=== PATIENT | male | born 1970 | race Hispanic/Latino ===

== ENCOUNTER 2017-02-01 | Emergency (ER) | payer MEDICAID ==
[2017-02-01 00:34] VITALS: BP 120/85
--- NOTE | 2017-02-04 00:54 | ED Elopement Review ---
ED Pt Elopement review - Call Back decision Pt Call Back Decision: Pt to F/U with PMD
== END 2017-02-01 03:02 | disposition left against medical advice (07) ==
LOC: ED
DX: Z00.8 Encounter for other general examination (principal); Z53.21 Procedure and treatment not carried out due to patient leaving prior to being seen by health care provider

== ENCOUNTER 2017-02-01 15:26 | Emergency (ER) | payer MEDICAID ==
[2017-02-01 16:02] VITALS: BP 126/86
--- NOTE | 2017-02-01 17:29 | Emergency Department Report ---
ED Psych HPI - General Chief Complaint: Recheck/Abnormal Lab/Rx Stated Complaint: MED REFILL Time Seen by Provider: 02/01/17 17:15 Source: patient Mode of arrival: Ambulatory - History of Present Illness Initial Comments: Pt is a 46 yr old male, unknown to me, presenting to the ER requesting haldol injections and Rx for haldol. Pt reports he used to get them from his previous psychiatrist, but is in the midst of finding a new doctor. Pt denies any SI, HI , delusions, hallucinations. Pt is homeless and does not have a job. Pt also reports he has no ID and cannot get into a [facility]. I explained to the patient I will not give him an injection of haldol and discharge him with a Rx without speaking with his doctor, but he cannot provide information regarding his psych history. - Related Data Previous Rx's Medication Instructions Recorded Last Taken Type Cyclobenzaprine [Flexeril 10mg] 10 mg PO TID PRN #15 tablet 10/15/14 Unknown Rx HYDROcodone/APAP 5-325 [[place] 1 each PO Q8H PRN #12 tablet 10/15/14 Unknown Rx 5-325 mg TAB] Ibuprofen [Motrin 800 MG tab] 800 mg PO Q8H #15 tablet 10/15/14 Unknown Rx levETIRAcetam [Keppra] 500 mg PO BID #60 tablet 01/23/15 Unknown Rx Ibuprofen [Motrin 800 MG tab] 800 mg PO Q8HR PRN #30 tablet 10/08/15 Unknown Rx methOCARBAMOL [Robaxin TAB] 500 mg PO Q6H PRN #20 tablet 10/08/15 Unknown Rx Allergies Allergy/AdvReac Type Severity Reaction Status Date / Time No Known Allergies Allergy Verified 03/03/14 22:59 ED Review of Systems ROS: Stated complaint: MED REFILL Other details as noted in HPI Comment: All other systems reviewed and negative ED Past Medical Hx - Past Medical History Previous Medical History?: Yes Hx Psychiatric Treatment: Yes (schizophrenia bipolar) Hx COPD: Yes - Surgical History Additional Surgical History: bilat knee surgery. LEFT ELBOW SURGERY - Social History Smoking Status: Current Every Day Smoker Substance Use Type: Alcohol - Medications Home Medications: Home Medications Medication Instructions Recorded Confirmed Last Taken Type Cyclobenzaprine [Flexeril 10mg] 10 mg PO TID PRN #15 tablet 10/15/14 Unknown Rx HYDROcodone/APAP 5-325 [[place] 1 each PO Q8H PRN #12 tablet 10/15/14 Unknown Rx 5-325 mg TAB] Ibuprofen [Motrin 800 MG tab] 800 mg PO Q8H #15 tablet 10/15/14 Unknown Rx levETIRAcetam [Keppra] 500 mg PO BID #60 tablet 01/23/15 Unknown Rx Ibuprofen [Motrin 800 MG tab] 800 mg PO Q8HR PRN #30 tablet 10/08/15 Unknown Rx methOCARBAMOL [Robaxin TAB] 500 mg PO Q6H PRN #20 tablet 10/08/15 Unknown Rx ED Physical Exam - General Limitations: No Limitations General appearance: alert, in no apparent distress, other (Unkempt) - Head Head exam: Present: atraumatic, normocephalic - Eye Eye exam: Present: normal appearance, PERRL, EOMI. Absent: nystagmus - ENT ENT exam: Present: mucous membranes moist - Neck Neck exam: Present: normal inspection - Respiratory Respiratory exam: Present: normal lung sounds bilaterally. Absent: respiratory distress - Cardiovascular Cardiovascular Exam: Present: regular rate, normal rhythm. Absent: systolic murmur, diastolic murmur, rubs, gallop - GI/Abdominal GI/Abdominal exam: Present: soft, normal bowel sounds - Rectal Rectal exam: Present: deferred - Extremities Exam Extremities exam: Present: normal inspection - Back Exam Back exam: Present: normal inspection - Neurological Exam Neurological exam: Present: alert, oriented X3 - Psychiatric Psychiatric exam: Present: normal affect, normal mood. Absent: depressed, homicidal ideation, suicidal ideation - Skin Skin exam: Present: warm, dry, intact, normal color. Absent: rash ED Course Vital Signs 02/01/17 15:57 Temperature 97.8 F Pulse Rate 97 H Respiratory 17 Rate Blood Pressure 126/86 O2 Sat by Pulse 98 Oximetry ED Medical Decision Making - Medical Decision Making I spoke with the patient at bedside and discussed with him I will not be giving him haldol or an Rx for haldol injections without proof of medication or speaking with his doctor. Pt cannot provide any of this information. Pt is calm and cooperative. Pt is homeless and has no ID, will try to find a [facility] or information for the patient. pt given [facility] information Critical care attestation.: If time is entered above; I have spent that time in minutes in the direct care of this critically ill patient, excluding procedure time. ED Disposition Clinical Impression: Schizophrenia, Bipolar 1 disorder Disposition: DC-01 TO HOME OR SELFCARE Is pt being admited?: No Condition: Stable Instructions: Bipolar Disorder (ED), Schizophrenia (ED) Referrals: PRIMARY CARE, [Primary Care Provider] - 3-5 Days
== END 2017-02-01 17:47 | disposition home or self-care (01) ==
LOC: ED 15:26
DX: F20.9 Schizophrenia, unspecified (principal); F31.9 Bipolar disorder, unspecified; J44.9 Chronic obstructive pulmonary disease, unspecified; F17.200 Nicotine dependence, unspecified, uncomplicated
CPT/HCPCS: 99282

== ENCOUNTER 2017-02-01 21:26 | Emergency (ER) | payer MEDICAID ==
[2017-02-01 21:53] VITALS: BP 124/87
[2017-02-01 22:06] LABS: Basophils % (Auto) 0.7 % (0.0-1.8); Eosinophils % (Auto) 0.9 % (0.0-4.3); Hemoglobin 13.8 gm/dl (11.8-15.2); Mean Corpuscular HGB Conc 34 % (32-34); Mean Corpuscular Hemoglobin 31 pg (28-32); Mean Corpuscular Volume 93 fl (84-94); Platelet Count 240 K/mm3 (140-440); Red Blood Count 4.42 M/mm3 (3.65-5.03); Red Cell Distribution Width 13.1 % (13.2-15.2); White Blood Count 10.4 K/mm3 (4.5-11.0)
[2017-02-01 22:20] LABS: Anion Gap 19 mmol/L; BUN/Creatinine Ratio 8.75; Blood Urea Nitrogen 7 mg/dL (9-20); Carbon Dioxide 24 mmol/L (22-30); Chloride 100.2 mmol/L (98-107); Glucose 120 mg/dL (75-100); Potassium 3.3 mmol/L (3.6-5.0); Sodium 140 mmol/L (137-145)
== END 2017-02-01 23:55 | disposition left against medical advice (07) ==
LOC: EEVIPCON 21:26 → ED 21:26
DX: Z59.0 Homelessness (principal); Z53.21 Procedure and treatment not carried out due to patient leaving prior to being seen by health care provider
CPT/HCPCS: 36415; 80048; 85025; G0480; 80320

== ENCOUNTER 2017-05-27 04:04 | Emergency (ER) | payer MEDICAID ==
[2017-05-27 04:36] VITALS: BP 117/64
[2017-05-27 05:12] LABS: Urine Drugs of Abuse Note Disclamer
[2017-05-27 05:18] LABS: Bilirubin,Urine NEG (Negative); Blood,Urine NEG (Negative); Ketones,Urine NEG (Negative); Leukocyte Esterase,Urine NEG (Negative); Nitrite,Urine NEG (Negative); Protein,Urine <15 mg/dL mg/dL (Negative); RBC,Urine < 1.0 /HPF (0.0-6.0); Urobilinogen,Urine < 2.0 mg/dL (<2.0); WBC,Urine < 1.0 /HPF (0.0-6.0)
[2017-05-27 05:54] LABS: Basophils % (Auto) 0.8 % (0.0-1.8); Eosinophils % (Auto) 2.3 % (0.0-4.3); Hematocrit 38.7 % (35.5-45.6); Hemoglobin 13.2 gm/dl (11.8-15.2); Mean Corpuscular HGB Conc 34 % (32-34); Mean Corpuscular Hemoglobin 31 pg (28-32); Mean Corpuscular Volume 91 fl (84-94); Platelet Count 273 K/mm3 (140-440); Red Blood Count 4.25 M/mm3 (3.65-5.03); Red Cell Distribution Width 13.3 % (13.2-15.2); White Blood Count 8.9 K/mm3 (4.5-11.0)
[2017-05-27 06:07] LABS: Anion Gap 17 mmol/L; Blood Urea Nitrogen 10 mg/dL (9-20); Calcium 8.8 mg/dL (8.4-10.2); Carbon Dioxide 23 mmol/L (22-30); Chloride 105.3 mmol/L (98-107); Glucose 99 mg/dL (75-100); Potassium 3.7 mmol/L (3.6-5.0); Sodium 142 mmol/L (137-145)
== END 2017-05-27 06:00 | disposition left against medical advice (07) ==
LOC: ED 04:04
DX: F29 Unspecified psychosis not due to a substance or known physiological condition (principal); Z53.21 Procedure and treatment not carried out due to patient leaving prior to being seen by health care provider
CPT/HCPCS: 36415; 80048; 80307; 81001; 85025; G0480; 80320

== ENCOUNTER 2017-05-27 13:32 | Emergency (ER) | payer MEDICAID ==
--- NOTE | 2017-05-27 17:04 | Emergency Department Report ---
Chief Complaint: Psych Stated Complaint: PYSCH Time Seen by Provider: 05/27/17 17:04 - HPI History of Present Illness: Patient here to be evaluated. He said he wants to refill his medication and also wants a new psychiatrist. Patient takes olanzapine 20 mg daily at bedtime. He also is on Haldol Decanoate once a month which she gets that his current psychiatry clinic but he said he doesn't want to be there anymore. Denies any suicidal ideation. Denies any homicidal ideation. He has a history of schizophrenia bipolar and denies any visual or auditory hallucination. Denies any pain. - ROS Review of Systems: All systems are negative unless stated in HPI above. - Exam Vital Signs: Vital Signs 05/27/17 14:33 Temperature 98 F Pulse Rate 61 Blood Pressure 113/74 O2 Sat by Pulse 100 Oximetry Respiration is 18 Physical Exam: Gen.: He is 46-year-old male well-nourished well-developed in no acute distress Psych: Normal mood and behavior. No suicide ideation, no homicidal ideation. Denies any hallucination. MSE screening note: Focused history and physical exam performed. Due to findings the following was ordered:see mdm ED Medical Decision Making - Medical Decision Making MDM: Patient screened by provider in triage area. Appropriate protocol initiated and patient to be seen in main ED by ED Disposition for MSE Condition: Stable
[2017-05-27 19:12] LABS: Basophils % (Auto) 0.6 % (0.0-1.8); Eosinophils % (Auto) 1.4 % (0.0-4.3); Hematocrit 42.1 % (35.5-45.6); Hemoglobin 14.3 gm/dl (11.8-15.2); Mean Corpuscular HGB Conc 34 % (32-34); Mean Corpuscular Hemoglobin 31 pg (28-32); Mean Corpuscular Volume 91 fl (84-94); Platelet Count 276 K/mm3 (140-440); Red Blood Count 4.64 M/mm3 (3.65-5.03); Red Cell Distribution Width 13.6 % (13.2-15.2); White Blood Count 10.1 K/mm3 (4.5-11.0)
[2017-05-27 19:20] LABS: Anion Gap 16 mmol/L; BUN/Creatinine Ratio 11; Blood Urea Nitrogen 8 mg/dL (9-20); Calcium 9.7 mg/dL (8.4-10.2); Carbon Dioxide 27 mmol/L (22-30); Chloride 104.2 mmol/L (98-107); Glucose 92 mg/dL (75-100); Potassium 4.8 mmol/L (3.6-5.0); Sodium 142 mmol/L (137-145)
--- NOTE | 2017-05-28 07:07 | Emergency Department Report ---
ED Psych HPI - General Chief Complaint: Psych Stated Complaint: PYSCH Time Seen by Provider: 05/27/17 17:04 Source: patient Mode of arrival: Ambulatory - History of Present Illness Initial Comments: 46-year-old male with history of psychiatric illness here because he feels that his medications are not working. He denies suicidality or homicidality. He does not complain of auditory or visual hallucinations. He states he wants new medication. No fevers chills nausea vomiting. No medical complaints. MD Complaint: suicidal ideation Associated Psychiatric Symptoms: none History of same: No Improves With: none Worsens With: none Associated Symptoms: denies other symptoms Treatments Prior to Arrival: none - Related Data Home Medications Medication Instructions Recorded Confirmed Last Taken Banophen Anti-Itch 50 mg PO HS 05/27/17 05/27/17 Unknown Haldol Decanoate mg IM QMONTH 05/27/17 Unknown OLANZapine 20 mg PO HS 05/27/17 05/27/17 Unknown Allergies Allergy/AdvReac Type Severity Reaction Status Date / Time No Known Allergies Allergy Verified 03/03/14 22:59 ED Review of Systems ROS: Stated complaint: PYSCH Other details as noted in HPI Comment: All other systems reviewed and negative Respiratory: denies: cough, orthopnea Cardiovascular: denies: chest pain, palpitations Gastrointestinal: denies: abdominal pain, nausea Musculoskeletal: denies: back pain Psychiatric: other (difficulty sleeping). denies: anxiety, depression, auditory hallucinations, visual hallucinations, homicidal thoughts, suicidal thoughts ED Past Medical Hx - Past Medical History Hx Psychiatric Treatment: Yes (schizophrenia bipolar) Hx COPD: Yes - Surgical History Additional Surgical History: bilat knee surgery. LEFT ELBOW SURGERY - Family History Family history: no significant - Social History Smoking Status: Current Every Day Smoker Substance Use Type: None - Medications Home Medications: Home Medications Medication Instructions Recorded Confirmed Last Taken Type Banophen Anti-Itch 50 mg PO HS 05/27/17 05/27/17 Unknown History Haldol Decanoate mg IM QMONTH 05/27/17 Unknown History OLANZapine 20 mg PO HS 05/27/17 05/27/17 Unknown History ED Physical Exam - General Limitations: No Limitations General appearance: alert, in no apparent distress - Head Head exam: Present: atraumatic, normocephalic - Eye Eye exam: Present: normal appearance. Absent: scleral icterus, conjunctival injection - ENT ENT exam: Present: mucous membranes moist - Neck Neck exam: Absent: tenderness, meningismus - Respiratory Respiratory exam: Present: normal lung sounds bilaterally. Absent: respiratory distress, wheezes - Cardiovascular Cardiovascular Exam: Present: regular rate, normal rhythm, normal heart sounds. Absent: systolic murmur, diastolic murmur, rubs, gallop - GI/Abdominal GI/Abdominal exam: Present: soft, normal bowel sounds. Absent: tenderness - Rectal Rectal exam: Present: deferred - Extremities Exam Extremities exam: Absent: tenderness, pedal edema - Back Exam Back exam: Absent: tenderness, CVA tenderness (R), CVA tenderness (L) - Neurological Exam Neurological exam: Present: alert, oriented X3 - Psychiatric Psychiatric exam: Present: normal affect, normal mood - Skin Skin exam: Present: warm, dry, intact, normal color. Absent: rash ED Course Vital Signs 05/27/17 05/28/17 14:33 05:03 Temperature 98 F Pulse Rate 61 Respiratory 18 Rate Blood Pressure 113/74 O2 Sat by Pulse 100 Oximetry ED Medical Decision Making - Lab Data Result diagrams: 05/27/17 18:51 05/27/17 18:51 Laboratory Results - last 24 hr 05/27/17 05/27/17 05/27/17 18:51 18:51 18:51 WBC 10.1 RBC 4.64 Hgb 14.3 Hct 42.1 MCV 91 MCH 31 MCHC 34 RDW 13.6 Plt Count 276 Lymph % (Auto) 31.8 [place] % (Auto) 9.8 H Eos % (Auto) 1.4 Baso % (Auto) 0.6 Lymph # 3.2 [place] # 1.0 H Eos # 0.1 Baso # 0.1 Seg Neutrophils % 56.4 Seg Neutrophils # 5.7 Sodium 142 Potassium 4.8 D Chloride 104.2 Carbon Dioxide 27 Anion Gap 16 BUN 8 L Creatinine 0.7 L Estimated GFR > 60 BUN/Creatinine Ratio 11 Glucose 92 Calcium 9.7 Plasma/Serum Alcohol < 0.01 - Medical Decision Making 46-year-old male with a history of psychiatric illness here once his medications adjusted. Plan to have the mental assessment team evaluate him. This point I do not feel he is a threat for self-harm. I will not plan to place him on a psychiatric hold. Critical care attestation.: If time is entered above; I have spent that time in minutes in the direct care of this critically ill patient, excluding procedure time. ED Disposition Clinical Impression: Bipolar 1 disorder Disposition: DC-01 TO HOME OR SELFCARE Is pt being admited?: No Condition: Stable Instructions: Mood Disorders (ED) Additional Instructions: Please follow-up with your outpatient resources. Referrals: PRIMARY CARE, [Primary Care Provider] - 3-5 Days
--- NOTE | 2017-05-28 11:45 | Consultation ---
History of Present Illness - Reason for Consult Consult date: 05/28/17 Reason for consult: Mental Health Evaluation Requesting physician: CYNDI SHEIKH - Chief Complaint Chief complaint: "I want new medication" - History of Present Psychiatric Illness 46-year-old male with history of psychiatric illness here because he feels that his medications are not working. Today patient is calm and cooperative during the assessment. He stated that he came to [facility] because he felt like his current medication isn't working. Patient stated that he has a hx of schizophrenia. He stated that he may need a higher dose. He denies SI/HI's, AVH's and depression. He stated that he would like a referral to another psychiatrist, because he do not get along with his current provider. Patient was able to show me his medication bottle of Zyprexa. Patient stated that he receive the monthly Haldol injection. His next injection is scheduled for 21 Jun 2017 at his psychiatrist' s office. He denies recreational drug use and excessive alcohol consumption ( etoh). No distress noted during the assessment. Medications and Allergies Allergies Allergy/AdvReac Type Severity Reaction Status Date / Time No Known Allergies Allergy Verified 03/03/14 22:59 Home Medications Medication Instructions Recorded Confirmed Last Taken Type Banophen Anti-Itch 50 mg PO HS 05/27/17 05/27/17 Unknown History Haldol Decanoate mg IM QMONTH 05/27/17 Unknown History OLANZapine 20 mg PO HS 05/27/17 05/27/17 Unknown History Past psychiatric history - Past Medical History Past Medical History: COPD Past Surgical History: No surgical history - past Psychiatric treatment and history Psych: Schizophrenia psychiatric treatment history: Seen by Dr Robin Roberto for outpatient psy services. Denies a fam psy hx. - Social History Social history: other (Reside with friends. ) Mental Status Exam - Vital signs Last Vital Signs Temp 98 F 05/27/17 14:33 Pulse 61 05/27/17 14:33 Resp 18 05/28/17 05:03 BP 113/74 05/27/17 14:33 Pulse Ox 100 05/27/17 14:33 - Exam Narrative exam: MSE: Appearance: calm, cooperative Behavior: regular eye contact Speech: regular rate and tone Mood: "okay" Affect: congruent to mood Thought Process: linear Thought Content: denies SI/HI's, and AVH's Motor Activity: ambulatory Cognition: A/O x3 Insight: fair Judgment: fair Results Result Diagrams: 05/27/17 18:51 05/27/17 18:51 Abnormal lab results 05/27/17 05/27/17 Range/Units 18:51 18:51 [place] % (Auto) 9.8 H (0.0-7.3) % [place] # 1.0 H (0.0-0.8) K/mm3 BUN 8 L (9-20) mg/dL Creatinine 0.7 L (0.8-1.5) mg/dL All other labs normal. Assessment and Plan Assessment and plan: Impression: Historical Dx: Schizophrenia. Today patient is calm and cooperative during the assessment. Patient denies SI/HI's, AVH's, and depression. Recommendation/Plan: Patient can follow-up with his psychiatrist Dr Robin Roberto. Also, patient given outpatient psy services for [facility]. Patient does not need a prescription. Patient receive the monthly Haldol injection.
[2017-05-28 13:18] VITALS: BP 101/67
[2017-05-28 13:42] LABS: Urine Drugs of Abuse Note Disclamer
[2017-05-28 13:53] LABS: Bilirubin,Urine NEG (Negative); Blood,Urine NEG (Negative); Ketones,Urine NEG (Negative); Leukocyte Esterase,Urine NEG (Negative); Nitrite,Urine NEG (Negative); Protein,Urine <15 mg/dL mg/dL (Negative); Urobilinogen,Urine < 2.0 mg/dL (<2.0)
[2017-05-28 13:57] LABS: WBC,Urine < 1.0 /HPF (0.0-6.0)
== END 2017-05-28 13:27 | disposition home or self-care (01) ==
LOC: ED 13:32 → EEVIPCON 13:32 → ED 05-28 13:27
DX: F31.9 Bipolar disorder, unspecified (principal); F20.9 Schizophrenia, unspecified; J45.909 Unspecified asthma, uncomplicated
CPT/HCPCS: 36415; 80048; 80307; 81001; 85025; 99284; G0480; 80320

== ENCOUNTER 2017-07-31 18:17 | Emergency (ER) | payer MEDICAID ==
[2017-07-31] MEDS ORDERED: NACL 0.9% 500 ML IR ONE (21:31)
[2017-07-31] MEDS ORDERED: MORPHINE IV ONE (22:00)
[2017-07-31] MEDS ORDERED: ZOFRAN IV ONE (22:00)
[2017-07-31 22:22] LABS: Basophils % (Auto) 0.6 % (0.0-1.8); Eosinophils % (Auto) 1.2 % (0.0-4.3); Hematocrit 39.5 % (35.5-45.6); Hemoglobin 13.5 gm/dl (11.8-15.2); Mean Corpuscular HGB Conc 34 % (32-34); Mean Corpuscular Hemoglobin 31 pg (28-32); Mean Corpuscular Volume 91 fl (84-94); Platelet Count 270 K/mm3 (140-440); Red Blood Count 4.34 M/mm3 (3.65-5.03); Red Cell Distribution Width 13.1 % (13.2-15.2); White Blood Count 9.2 K/mm3 (4.5-11.0)
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
[2017-07-31 22:53] LABS: Alanine Aminotransferase 9 units/L (7-56); Albumin 4.4 g/dL (3.9-5); Albumin/Globulin Ratio 2.1 %; Alkaline Phosphatase 75 units/L (35-129); Anion Gap 21 mmol/L; BUN/Creatinine Ratio 15; Blood Urea Nitrogen 9 mg/dL (9-20); Carbon Dioxide 24 mmol/L (22-30); Chloride 100.5 mmol/L (98-107); Glucose 94 mg/dL (75-100); Potassium 4.3 mmol/L (3.6-5.0); Sodium 141 mmol/L (137-145); Total Protein 6.5 g/dL (6.3-8.2)
[2017-08-01 00:32] VITALS: BP 123/76
== END 2017-08-01 00:31 | disposition home or self-care (01) ==
LOC: ED 18:17
DX: M79.602 Pain in left arm (principal); M79.89 Other specified soft tissue disorders; F31.9 Bipolar disorder, unspecified; F20.9 Schizophrenia, unspecified; J44.9 Chronic obstructive pulmonary disease, unspecified; F17.200 Nicotine dependence, unspecified, uncomplicated
CPT/HCPCS: 36415; 80053; 85025; 96374; 96375; 99284; J2270; J2405

== ENCOUNTER 2017-08-18 10:14 | Emergency (ER) | payer MEDICAID ==
[2017-08-18 10:26] VITALS: BP 117/79
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
== END 2017-08-18 13:29 | disposition home or self-care (01) ==
LOC: ED 10:14
DX: M79.632 Pain in left forearm (principal); F31.9 Bipolar disorder, unspecified; F20.9 Schizophrenia, unspecified; J44.9 Chronic obstructive pulmonary disease, unspecified; F17.200 Nicotine dependence, unspecified, uncomplicated

== ENCOUNTER 2017-11-01 00:13 | Emergency (ER) | payer MEDICAID ==
[2017-11-01 00:28] VITALS: BP 111/81
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
[2017-11-01] MEDS: MOTRIN PO ONE (02:47)
== END 2017-11-01 02:54 | disposition home or self-care (01) ==
LOC: ED 00:13
DX: L03.032 Cellulitis of left toe (principal); F20.9 Schizophrenia, unspecified; F31.9 Bipolar disorder, unspecified
CPT/HCPCS: 99283

== ENCOUNTER 2019-09-13 23:31 | Emergency (ER) | payer MEDICAID ==
--- NOTE | 2019-09-14 01:15 | XRay Report ---
RIGHT FOREARM 3 VIEWS INDICATION: right forearm pain. COMPARISON: No relevant prior imaging study available. FINDINGS: No fracture or dislocation is seen. No focal soft tissue swelling, soft tissue gas, or radiodense for eign bodies. IMPRESSION: 1. No acute findings. Signer Name: Dae Michelle MD Signed: 09/14/2019 1:11 AM Workstation Name: [id number]
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
[2019-09-14 06:00] VITALS: BP 131/88
== END 2019-09-14 04:53 | disposition home or self-care (01) ==
LOC: ED 23:31
DX: S59.911A Unspecified injury of right forearm, initial encounter (principal); F25.0 Schizoaffective disorder, bipolar type; J44.9 Chronic obstructive pulmonary disease, unspecified; F17.200 Nicotine dependence, unspecified, uncomplicated; F10.10 Alcohol abuse, uncomplicated; Z98.890 Other specified postprocedural states; Z79.899 Other long term (current) drug therapy; X99.8XXA Assault by other sharp object, initial encounter; Y93.89 Activity, other specified; Y92.89 Other specified places as the place of occurrence of the external cause; Y99.8 Other external cause status